=== PATIENT | male | born 1970 | race Caucasian/White ===

== ENCOUNTER 2021-03-21 16:45 | Emergency (ER) | payer SELFPAY ==
[~2021-03-21] VITALS: Ht 180.3 cm; Wt 104.5 kg
[2021-03-21] MEDS ORDERED: NALOXONE 0.4 MG/ML VIAL. IV ONE (17:00)
--- NOTE | 2021-03-21 17:12 | PHYS DOC ---
Adult General Chief Complaint Chief Complaint: SLURRED SPEECH HPI HPI Patient is a 50-year-old male presenting for slurred speech. Patient reportedly woke up this morning with slurred speech and was slow to respond to verbal stimuli which concerned girlfriend at 0900 hrs. who called EMS. Patient was ev aluated and it was recommended that he be transported to hospital for evaluation but patient declined. Patient symptoms improved throughout the day when later, at 1500 hrs., again noticed slurred speech and stated " his right arm just was not moving right" so she called EMS again. EMS arrived to scene in triage patient who was found to be hypoxic on room air in the 80s and so, supplemental oxygen via nasal cannula administered and patient transferred to our facility for evaluation. Patient was brought in as code stroke given uncertainty of symptoms, there was no trauma, patient has no complaints on arrival. Denies falls, no recent fever, no sick contacts, chest pain, shortness of breath, abdominal pain or dysuria. Denies any obvious motor, sensory or neurologic deficits Review of Systems Review of Systems Fourteen body systems of review of systems have been reviewed. See HPI for pertinent positives and negative responses, other rayo all other systems are negative, non-pertinent or non-contributory Current Medications Current Medications Current Medications Medications (Trade) Dose Ordered Sig/Liza Start Time Stop Time Status Last Admin Dose Admin Naloxone HCl (Narcan) 0.1 mg 1X ONCE 03/21/21 17:00 03/21/21 17:01 UNV 03/21/21 17:08 0.1 MG Allergies Allergies Allergies Coded Allergies Type Severity Reaction Last Updated Verified No Known Drug Allergies 03/21/21 No Physical Exam Physical Exam Constitutional: Well developed, no acute distress, does appear dazed and has short attention span having to be redirected throughout entirety of HPI and physical exam to participate HENT: Normocephalic, atraumatic, bilateral external ears normal, oropharynx moist, no oral exudates, nose normal. Eyes: Pupils equal round and pinpoint, EOMI, conjunctiva normal, no discharge. Neck: Normal range of motion, no tenderness, supple, no stridor. Cardiovascular: Heart rate tachycardic, sinus rhythm, no murmurs rubs or gallops Lungs & Thorax: Hypoxic on room air without any obvious respiratory distress, increased work of breathing or accessory muscle use, patient has crackles in bilateral lung bases Abdomen: Bowel sounds normal, soft, no tenderness, no masses, no pulsatile masses. Nonsurgical abdomen, no peritoneal signs Skin: Warm, dry, no erythema, no rash. Back: No tenderness, no CVA tenderness. Extremities: No tenderness, no cyanosis, no clubbing, ROM intact, no edema. Neurologic: Alert and oriented X 3, cranial nerves II through XII intact, normal motor & sensory function, no focal deficits noted. Downward going toes bilaterally with stimulation Psychologic: Flat affect, appears under the influence of an illicit substance Current Patient Data Vital Signs Vital Signs Date Time Temp Pulse Resp B/P (MAP) Pulse Ox O2 Delivery O2 Flow Rate FiO2 03/21/21 16:50 98.1 95 20 141/97 (112) 94 Nasal Cannula 2.0 Vital Signs Date Time Temp Pulse Resp B/P (MAP) Pulse Ox O2 Delivery O2 Flow Rate FiO2 03/21/21 17:45 102 22 95 03/21/21 17:25 147/95 (112) Nasal Cannula 2.0 03/21/21 16:55 98.1 EKG EKG EKG ordered and interpreted by myself 1711 hrs. as sinus rhythm at 96 bpm, unremarkable intervals, left axis deviation, no acute ischemic findings, no STEMI Radiology/Procedures Radiology/Procedures Exam: CT head INDICATION: Slurred speech TECHNIQUE: Sequential axial images through the head were obtained without the administration of IV contrast. Exposure: One or more of the following in the visualized dose reduction techniques were utilized for this examination: 1. Automated exposure control 2. Adjustment of the MA and/or KV according to patient size 3. Use of iterative of reconstructive technique Comparisons: None FINDINGS: No focal parenchymal lesion or hemorrhage is identified. There is no midline shift or sulcal effacement. Mild hypodensity in the left temporal lobe. No acute vascular territory infarction is identified. Martinez-white distinction is preserved. The ventricular system is within normal limits without compression hydrocephalus. The basal cisterns are well maintained. The visualized portions of the paranasal sinuses and mastoid air cells are well- pneumatized. No acute fractures. IMPRESSION: Mild asymmetric hyperdensity noted within the left temporal lobe seen on series 2 image 12, may be artifactual. MRI is recommended to better assess. No acute hemorrhage. /////////////// Exam: CTA head and neck INDICATION: Slurred speech TECHNIQUE: Sequential axial images through the head and neck obtained following the administration of 75 mL of Omni 350 IV contrast. Sagittal and coronal reformatted images were reconstructed from the axial data and reviewed. 3-D reformatted images were reconstructed from the axial data and reviewed. Exposure: One or more of the following in the visualized dose reduction techniques were utilized for this examination: 1. Automated exposure control 2. Adjustment of the MA and/or KV according to patient size 3. Use of iterative of reconstructive technique Comparisons: CT head without contrast same day FINDINGS: CTA NECK: Visualized portions thoracic aorta are unremarkable. Standard three-vessel arch anatomy. Right common carotid artery is patent without evidence of stenosis, occlusion or aneurysm. Cervical segment of the right internal carotid artery is patent without evidence of stenosis, occlusion or aneurysm. Left common carotid artery is patent without evidence of stenosis, occlusion or aneurysm. Cervical segment of the left internal carotid artery is patent without evidence of stenosis, occlusion or aneurysm. Right vertebral artery is patent to the basilar confluence without evidence of s tenosis, occlusion or aneurysm. Left vertebral artery is patent to the basilar confluence without evidence of stenosis, occlusion or aneurysm. Visualized paraspinal soft tissues are unremarkable. CTA HEAD: Intracranial segments of the right internal carotid artery are patent without evidence of stenosis, occlusion or aneurysm. Right MCA is patent. Right ROCHELLE is patent. Intracranial segments of the left internal carotid artery are patent without evidence stenosis, occlusion or aneurysm. Left MCA is patent. Left ROCHELLE is patent. Basilar artery is patent without evidence of stenosis, occlusion or aneurysm. athletic turf worker are patent bilaterally. IMPRESSION: Patent intracranial and cervical arterial vasculature without evidence of stenosis, occlusion or aneurysm. No large vessel occlusion. Electronically signed by: Pb George MD (03/21/2021 7:46 PM) [facility] //////////////////// Exam: CT of chest with contrast INDICATION: Shortness of breath, hypoxia TECHNIQUE: Sequential axial images through the chest obtained following the administration of 75 mL of Omni 350 IV contrast. Sagittal and coronal reformatted images were reconstructed from the axial data and reviewed. 3-D reformatted images were reconstructed from the axial data and reviewed. Exposure: One or more of the following in the visualized dose reduction techniques were utilized for this examination: 1. Automated exposure control 2. Adjustment of the MA and/or KV according to patient size 3. Use of iterative of reconstructive technique Comparisons: Chest x-ray same day FINDINGS: Visualized portions of the thyroid are unremarkable. No enlarged mediastinal lymph nodes are identified. Heart is mildly enlarged. No pericardial effusion. Thoracic aorta has a normal course and caliber. Pulmonary artery is not enlarged. No pulmonary embolus identified within the main, lobar or segmental pulmonary arteries. Airways are patent. No consolidation or pneumothorax. Strandy opacities at dependent portion lungs likely representing atelectasis. A 5 mm nodule in the left lower lobe series 4 image 84. Trace bilateral pleural effusions. Diffuse hepatic steatosis. No suspicious osseous lesions or acute fractures. IMPRESSION: 1. No pulmonary embolus identified within the main, lobar or segmental pulmonary arteries. 2. Diffuse hepatic steatosis. 3. A 5 mm nodule in the left lower lobe. In a low-risk patient no further follow-up imaging is recommended. In a high-risk patient optional one-year follow-up chest CT can BE performed. Electronically signed by: Pb George MD (03/21/2021 7:51 PM) [facility] Heart Score C/O Chest Pain: No HEART Score for Chest Pain: HEART Score for Chest Pain Response (Comments) Value History Slighlty/Non-Suspicious 0 ECG Nonspecific Repolarizatio 1 Age >45 - < 65 1 Risk Factors >3 Risk Factors or Hx CAD 2 Troponin < Normal Limit 0 Total 4 Risk Factors: Risk Factors: DM, Current or recent (<one month) smoker, HTN, HLP, family hi story of CAD, obesity. Risk Scores: Risk Factors: DM, Current or recent (<one month) smoker, HTN, HLP, family history of CAD, obesity. Course & Med Decision Making Course & Med Decision Making Patient hypoxic on arrival otherwise hemodynamically stable. [id number] glucose unremarkable and NIH of 1 obtained in route to CT scanner. CT head without contrast concerning for age-indeterminate left temporal lobe hyperdensity. Outside window for TPA Patient brought back to ER room. I had concern given pinpoint pupils, slurred/slowed speech and Ktracs review of patient showing active opioid and benzodiazepine medication and so, 0.1 mg IV Narcan administered with complete resolution of symptoms. Patient remained hypoxic Further diagnostic work-up in ER obtained and nonconcerning for any emergent or surgical issues. Girlfriend later came to ER and assisted with history. 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 Does admit that patient took x2 trazodone prescribed for girlfriend because he has not been sleeping well recently CT angio head, neck and chest performed nonconcerning for any emergent or surgical issues Patient still requiring supplemental oxygen via nasal cannula despite ER intervention. It is also questionable whether patient suffered an acute stroke today versus effects of polypharmacy and high risk individual, he will benefit from an MRI to better evaluate I contacted Dr. Schwab at [facility] who agreed need for transfer and accepted patient under his care into their telemetry unit. I updated patient and girlfriend on proposed plan of care and they were amenable to transfer and plan of care as stated for admission. All questions and concerns addressed prior to ER transfer Critical Care Time This patient required critical care. Due to the fact that the patient required a significant amount of one on one physician - patient contact time, ordering and review of studies, arranging urgent treatment with development of a management plan, evaluation of patients response to treatment with frequent reassessments, and discussions with other providers this patient required 50 minutes of critical care time. Critical care time was indicated due to the inherent instability and/or potential for instability in this patient. The critical care time that is allocated to this patient is above and beyond any time spent on any other billable procedures performed on this patient. Dragon Disclaimer Dragon Disclaimer This electronic medical record was generated, in whole or in part, using a voice recognition dictation system. NIH Stroke Scale: NIH Stroke Scale Response (Comments) Value Level of Consciousness: 0 Alert/Responsive 0 LOC Questions: 0 Answers both correctly 0 LOC Commands: 0 Performs both tasks 0 Best Gaze: 0 Normal 0 Visual: 0 No visual loss 0 Facial Palsy: 0 Normal, symmetrical 0 Motor - Left Arm 0 No drift 0 Motor - Right Arm 0 No drift 0 Motor - Left Leg 0 No drift 0 Motor: Right Leg 0 No drift 0 Limb Ataxia: 0 Absent 0 Sensory: 0 No loss 0 Best Language: 1 Mild to mod aphasia 1 Dysathria: 0 Normal 0 Extinction and Inattention: 0 Normal 0 Total 1 Departure Departure: Impression: Primary Impression: Acute respiratory failure with hypoxia Additional Impressions: At risk for polypharmacy Slurring of speech Intravenous tissue plasminogen activator (tPA) not indicated History of arterial thrombosis Disposition: [facility] ([facility]) Admitting Physician: Dahiana Schwab Condition: STABLE Referrals: JUSTIN SOLORZANO (PCP) Problem Qualifiers DAVINA CAMPOS DO March 21, 2021 17:12
[2021-03-21 17:21] LABS: CALCIUM 9.2 mg/dL (8.5-10.1); CREATININE 1.4 mg/dL (0.7-1.3); GFR 53.6; POTASSIUM 3.9 mmol/L (3.5-5.1)
--- NOTE | 2021-03-21 17:21 | RAD ---
Exam: CT head INDICATION: Slurred speech TECHNIQUE: Sequential axial images through the head were obtained without the administration of IV co ntrast. Exposure: One or more of the following in the visualized dose reduction techniques were utilized for this examination: 1. Automated exposure control 2. Adjustment of the MA and/or KV according to patient size 3. Use of iterative of reconstructive technique Comparisons: None FINDINGS: No focal parenchymal lesion or hemorrhage is identified. There is no midline shift or sulcal effaceme nt. Mild hypodensity in the left temporal lobe. No acute vascular territory infarction is identified. Gra y-white distinction is preserved. The ventricular system is within normal limits without compression hydrocephalus. The basal cisterns are well maintained. The visualized portions of the paranasal sinuses and mastoid air cells are well-pneumatized. No acute fractures. IMPRESSION: Mild asymmetric hyperdensity noted within the left temporal lobe seen on series 2 image 12, may be ar tifactual. MRI is recommended to better assess. No acute hemorrhage. FOR INTERNAL CODING PURPOSES Critical result: Findings discussed with Dr. Angeles at 03/21/2021 5:16 PM. RESULT CODE: (C) Electronically signed by: Pb George MD (03/21/2021 5:19 PM) [facility]
[2021-03-21 17:23] LABS: BASO # 0.1 x10^3/uL (0.0-0.2); BASO % 1 % (0-3); EOS # 0.3 x10^3/uL (0.0-0.7); EOS % 2 % (0-3); HEMATOCRIT 45.5 % (39.0-53.0); HEMOGLOBIN 15.8 g/dL (13.0-17.5); LYMPH # 7.2 x10^3/uL (1.0-4.8); LYMPH % 52 % (24-48); MEAN CORPUSCULAR HEMOGLOBIN 33 pg (25-35); MEAN CORPUSCULAR HGB CONC 35 g/dL (31-37); MEAN CORPUSCULAR VOLUME 95 fL (79-100); MONO % 7 % (0-9); NEUT # 5.2 x10^3uL (1.8-7.7); NEUT % 38 % (31-73); PLATELET COUNT 226 x10^3/uL (140-400); RED BLOOD COUNT 4.79 x10^6/uL (4.30-5.70); RED CELL DISTRIBUTION WIDTH 13.4 % (11.5-14.5); WHITE BLOOD COUNT 13.8 x10^3/uL (4.0-11.0)
[2021-03-21 17:27] LABS: ALBUMIN 4.2 g/dL (3.4-5.0); ALBUMIN/GLOBULIN RATIO 1.2 (1.0-1.7); TOTAL BILIRUBIN 0.5 mg/dL (0.2-1.0); TOTAL PROTEIN 7.8 g/dL (6.4-8.2)
--- NOTE | 2021-03-21 17:28 | EKG ---
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
--- NOTE | 2021-03-21 18:19 | RAD ---
AP chest x-ray HISTORY: Code stroke. FINDINGS: Mild cardiomegaly. Aortic arch calcified plaque. Mild elevation of the right diaphragm and right infrahilar opacity most likely atelectasis, underlying pneumonic infiltrate or underlying infra hilar nodule is not excluded. Left lung is clear. Bones are unremarkable. IMPRESSION: Mild elevation of the right diaphragm and mild right infrahilar opacity as described abov e. Electronically signed by: Hal Finley MD (03/21/2021 6:17 PM) [facility]
[2021-03-21] MEDS ORDERED: CONTRAST GIVEN. MC PRN (18:30)
[2021-03-21] MEDS ORDERED: IOHEXOL 350 MG/ML 100 ML VIAL. IV ONE ×2 (18:30→18:45)
[2021-03-21] MEDS ORDERED: IV NORMAL SALINE 1,000ML 1,000 ML IV ONE (19:00)
--- NOTE | 2021-03-21 19:49 | RAD ---
Exam: CTA head and neck INDICATION: Slurred speech TECHNIQUE: Sequential axial images through the head and neck obtained following the administration of 75 mL of Omni 350 IV contrast. Sagittal and coronal reformatted images were reconstructed from the a xial data and reviewed. 3-D reformatted images were reconstructed from the axial data and reviewed. Exposure: One or more of the following in the visualized dose reduction techniques were utilized for this examination: 1. Automated exposure control 2. Adjustment of the MA and/or KV according to patient size 3. Use of iterative of reconstructive technique Comparisons: CT head without contrast same day FINDINGS: CTA NECK: Visualized portions thoracic aorta are unremarkable. Standard three-vessel arch anatomy. Right common carotid artery is patent without evidence of stenosis, occlusion or aneurysm. Cervical s egment of the right internal carotid artery is patent without evidence of stenosis, occlusion or aneu rysm. Left common carotid artery is patent without evidence of stenosis, occlusion or aneurysm. Cervical se gment of the left internal carotid artery is patent without evidence of stenosis, occlusion or aneury sm. Right vertebral artery is patent to the basilar confluence without evidence of stenosis, occlusion or aneurysm. Left vertebral artery is patent to the basilar confluence without evidence of stenosis, occlusion or aneurysm. Visualized paraspinal soft tissues are unremarkable. CTA HEAD: Intracranial segments of the right internal carotid artery are patent without evidence of stenosis, o cclusion or aneurysm. Right MCA is patent. Right ROCHELLE is patent. Intracranial segments of the left internal carotid artery are patent without evidence stenosis, occlu cornel or aneurysm. Left MCA is patent. Left ROCHELLE is patent. Basilar artery is patent without evidence of stenosis, occlusion or aneurysm. cd reactor operator head are patent bilater ally. IMPRESSION: Patent intracranial and cervical arterial vasculature without evidence of stenosis, occlusion or aneu rysm. No large vessel occlusion. Electronically signed by: Pb George MD (03/21/2021 7:46 PM) [facility]
--- NOTE | 2021-03-21 19:54 | RAD ---
Exam: CT of chest with contrast INDICATION: Shortness of breath, hypoxia TECHNIQUE: Sequential axial images through the chest obtained following the administration of 75 mL o f Omni 350 IV contrast. Sagittal and coronal reformatted images were reconstructed from the axial radha a and reviewed. 3-D reformatted images were reconstructed from the axial data and reviewed. Exposure: One or more of the following in the visualized dose reduction techniques were utilized for this examination: 1. Automated exposure control 2. Adjustment of the MA and/or KV according to patient size 3. Use of iterative of reconstructive technique Comparisons: Chest x-ray same day FINDINGS: Visualized portions of the thyroid are unremarkable. No enlarged mediastinal lymph nodes are identifi ed. Heart is mildly enlarged. No pericardial effusion. Thoracic aorta has a normal course and caliber. Pu lmonary artery is not enlarged. No pulmonary embolus identified within the main, lobar or segmental p ulmonary arteries. Airways are patent. No consolidation or pneumothorax. Strandy opacities at dependent portion lungs li lyric representing atelectasis. A 5 mm nodule in the left lower lobe series 4 image 84. Trace bilateral pleural effusions. Diffuse hepatic steatosis. No suspicious osseous lesions or acute fractures. IMPRESSION: 1. No pulmonary embolus identified within the main, lobar or segmental pulmonary arteries. 2. Diffuse hepatic steatosis. 3. A 5 mm nodule in the left lower lobe. In a low-risk patient no further follow-up imaging is recom mended. In a high-risk patient optional one-year follow-up chest CT can BE performed. Electronically signed by: Pb George MD (03/21/2021 7:51 PM) [facility]
[2021-03-21 20:40] VITALS: BP 110/68
== END 2021-03-21 21:00 | disposition short-term general hospital (02) ==
LOC: ER 16:45
DX: J96.01 Acute respiratory failure with hypoxia (principal)
CPT/HCPCS: 36415; 70450; 70496; 70498; 71045; 71275; 80053; 82947; 84484; 85025; 85610; 85730; 93005; 96361; 96374; 99291; J2310; J7030; Q9967

== ENCOUNTER → 2021-11-25 | Outpatient (CLI) | payer OTHER ==
[2021-11-25 12:37] LABS: BARBITURATES NEG (NEG); BENZODIAZEPINES NEG (NEG); CANNABINOIDS NEG (NEG); COCAINE NEG (NEG); METHADONE NEG (NEG); OPIATES POS (NEG); PHENCYCLIDINE NEG (NEG)
[2021-11-25 12:38] LABS: AMPHETAMINE/METHAMPHETAMINE NEG (NEG)
== END ==
LOC: LAB 10:24
PROVIDERS: ATTEND Family Medicine
DX: G62.9 Polyneuropathy, unspecified (principal)
CPT/HCPCS: 36415; 80307